=== PATIENT | female | born 1985 | race Caucasian/White ===

== ENCOUNTER 2017-05-08 11:30 | Emergency (ER) | payer SELFPAY ==
[~2017-05-08] VITALS: Ht 160 cm; Wt 75.5 kg
[2017-05-08 12:44] LABS: HEMATOCRIT 38.7 % (36.0-46.0); HEMOGLOBIN 12.9 G/DL (11.9-15.5); MCH 30.7 PG (29.0-34.0); MCHC 33.3 G/DL (30.0-36.0); MCV 92.1 FL (83-99); PLATELET COUNT 241 K/uL (156-360); RBC DIS.WIDTH-SD 40.7 % (39-53); WHITE BLOOD COUNT 5.2 K/uL (4.1-10.2)
[2017-05-08 12:56] LABS: CHLORIDE 106 mEq/L (99-109); SODIUM 142 mEq/L (136-147)
[2017-05-08 12:57] LABS: GLUCOSE 90 mg/dL (70-99)
[2017-05-08 13:01] LABS: CREATININE 0.9 mg/dL (0.6-1.3); GFR ESTIMATE (CALCULATED) > 59 mL/min/
[2017-05-08 13:02] LABS: UREA NITROGEN (BUN) 10 mg/dL (9-23)
[2017-05-08] MEDS ORDERED: DELTASONE20 M1 PO (15:24)
[2017-05-08] MEDS ORDERED: ZITHROMAX Z-PA250 MG PO (15:24)
[2017-05-08] MEDS ORDERED: ROBITUSSIN AC,T10 ML PO (17:09)
[2017-05-08 17:48] VITALS: BP 118/62
== END 2017-05-08 17:49 | disposition home or self-care (01) ==
LOC: EME 11:30
DX: J18.9 Pneumonia, unspecified organism (principal); Z87.01 Personal history of pneumonia (recurrent); G47.419 Narcolepsy without cataplexy
CPT/HCPCS: 71046; 80048; 85027; 94640; 94640 76; 99281; 99284; J0696; J7512